=== PATIENT | male | born 1965 | race Caucasian/White ===

== ENCOUNTER 2017-01-12 00:17 | Emergency (ER) | payer SELFPAY ==
[~2017-01-12] VITALS: Ht 188 cm; Wt 171.0 kg
[~2017-01-12 00:17] MED LIST: ACET-637 PO; IBUP-45 PO; RANTIDINE
--- NOTE | 2017-01-12 01:16 | NUR ---
Patient discharged to home in stable conditon. Written and verbal after care instructions given. Patient verbalizes understanding of instructions.
== END 2017-01-12 01:17 | disposition home or self-care (01) ==
LOC: ER 00:18
DX: L08.9 Local infection of the skin and subcutaneous tissue, unspecified (principal); N50.89 Other specified disorders of the male genital organs; F17.200 Nicotine dependence, unspecified, uncomplicated
CPT/HCPCS: 99283; A4663

== ENCOUNTER 2018-05-02 01:39 | Emergency (ER) | payer SELFPAY ==
[~2018-05-02] VITALS: Ht 190.5 cm; Wt 170.1 kg
--- NOTE | 2018-05-02 01:59 | NUR ---
Dr. Patino at bedside for MSE.
[2018-05-02 02:18] LABS: *BLOOD, URINE NEGATIVE (NEGATIVE); *CLARITY,URINE CLEAR (CLEAR); *COLOR,URINE YELLOW (YELLOW); *KETONES,URINE TRACE (NEGATIVE); *UROBILINOGEN,URINE 0.2 E.U./dl (NORMAL); LEUKOCYTE ESTERASE ,URINE NEGATIVE (NEGATIVE); NITRITE, URINE NEGATIVE (NEGATIVE); UGLUCOSE NEGATIVE (NEGATIVE)
[2018-05-02 02:19] LABS: *BILIRUBIN,URIN 1+ (NEGATIVE)
[2018-05-02 02:27] LABS: BACTERIA,URINE NONE SEEN /HPF (NONE SEEN); RBC,URINE 0-3 /HPF (0-3); SQUAMOUS EPITHELIAL CELL,UR FEW /HPF (NONE SEEN)
[2018-05-02 02:28] LABS: MUCUS,URINE MODERATE /LPF (0-FEW)
--- NOTE | 2018-05-02 03:15 | NUR ---
Ultrasound at bedside.
--- NOTE | 2018-05-02 03:44 | NUR ---
Patient discharged to home in stable conditon. Written and verbal after care instructions given. Patient verbalizes understanding of instructions. Patient ambulated out of ER with steady gait, no acute signs of distress, VSS, all belongings taken.
[2018-05-02 03:48] VITALS: BP 165/90
== END 2018-05-02 03:54 | disposition home or self-care (01) ==
LOC: ER 01:39
DX: R32 Unspecified urinary incontinence (principal); L72.3 Sebaceous cyst; N50.89 Other specified disorders of the male genital organs; F17.200 Nicotine dependence, unspecified, uncomplicated; Z79.1 Long term (current) use of non-steroidal anti-inflammatories (NSAID); Z79.899 Other long term (current) drug therapy; Z90.89 Acquired absence of other organs
CPT/HCPCS: 76870; A4663

== ENCOUNTER 2018-11-05 21:52 | Emergency (ER) | payer SELFPAY ==
[~2018-11-05] VITALS: Ht 190.5 cm; Wt 172.4 kg
[2018-11-05] MEDS ORDERED: TRAM50TA2 PO (22:05)
--- NOTE | 2018-11-05 22:42 | NUR ---
Patient ambulated with stable gait. A/Ox4. Speech is clear, speaks in complete sentences. No neuro deficits noted. Patient came for c/o a stiff neck since Sunday. Patient has had a long hx of stiff neck symptoms since he was a child and was able to resolve it on his own usually. Patient stating that the stiffness in his neck is making him shiver. Pain 7/10. Respiratory even and unlabored, no cough no sob. No cardiovascular distress noted. No GI/ distress noted. Patient in bed at lowest position, sr upx2, call light within reach. Fall precautions implemented per protocol. Friend at bedisde accompanying patient.
[2018-11-05] MEDS ORDERED: IBUPROFEN 800 MG TABLET PO ONE (22:45)
[2018-11-05] MEDS ORDERED: IBUPROFEN 800 MG TABLET ONE (22:51)
[2018-11-05 22:52] LABS: EOSINOPHILS % (AUTO) 0.2 % (0.0-7.0); HEMATOCRIT 43.1 % (36.7-47.1); HEMOGLOBIN 14.8 g/dL (12.5-16.3); LYMPHOCYTES % (AUTO) 7.8 % (20.5-51.5); MEAN CORPUSCULAR HEMOGLOBIN 31.6 uug (23.8-33.4); MEAN CORPUSCULAR HGB CONC 34 g/dL (32.5-36.3); MEAN CORPUSCULAR VOLUME 92.4 fL (73.0-96.2); MONOCYTES % (AUTO) 7.7 % (0.0-11.0); NEUTROPHILS # (AUTO) 10.8 K/uL (1.8-8.9); NEUTROPHILS % (AUTO) 84.3 % (38.5-71.5); PLATELET COUNT (AUTO) 243 K/uL (152-348); RED BLOOD CELL COUNT(AUTO) 4.67 MIL/uL (4.06-5.63); WHITE BLOOD COUNT (AUTO) 12.9 K/uL (3.6-10.2)
[2018-11-05 23:10] LABS: POTASSIUM 3.8 mmol/L (3.5-5.1)
--- NOTE | 2018-11-05 23:10 | NUR ---
Patient transported to CT in stable condition.
[2018-11-05 23:16] LABS: BILIRUBIN,DIRECT 0.1 mg/dL (0.0-0.2); BILIRUBIN,TOTAL 0.6 mg/dL (0.2-1.0); TOTAL PROTEIN, SERUM 7.6 g/dL (6.4-8.2)
[2018-11-06] MEDS ORDERED: SULFAMETH/TRIMETH 800/160 MG TABLET PO ONE (00:45)
[2018-11-06] MEDS ORDERED: SULFAMETH/TRIMETH 800/160 MG TABLET ONE (00:46)
--- NOTE | 2018-11-06 00:52 | NUR ---
Patient discharged to home in stable conditon. Written and verbal after care instructions given. Patient verbalizes understanding of instructions. Patient ambulated with stable gait.
[2018-11-06 00:55] VITALS: BP 122/81
== END 2018-11-06 00:56 | disposition home or self-care (01) ==
LOC: ER 21:52
DX: L03.221 Cellulitis of neck (principal); F17.210 Nicotine dependence, cigarettes, uncomplicated; Z90.89 Acquired absence of other organs; Z79.1 Long term (current) use of non-steroidal anti-inflammatories (NSAID); Z79.899 Other long term (current) drug therapy
CPT/HCPCS: 36415; 70030-TC; 72125; 83605; 85025; 87040; A4663

== ENCOUNTER 2018-11-18 19:36 | Emergency (ER) | payer SELFPAY ==
[~2018-11-18] VITALS: Ht 188 cm; Wt 172.4 kg
[~2018-11-18 19:36] MED LIST changes: -ACET-637 PO; -IBUP-45 PO; +TRAM50TA2 PO
--- NOTE | 2018-11-18 19:47 | NUR ---
Pt ambulated into ER c/o of bump on the surface of the tongue. Pt states bump appeared 2 days ago but had no difficult in talking or eating since then. Pt denies pain or discomfort. No acute distress noted.
--- NOTE | 2018-11-18 19:49 | NUR ---
DR STEVENS at bedside for MSE.
--- NOTE | 2018-11-18 19:59 | NUR ---
Verbal after care instructions given by DR STEVENS. Patient discharged to home in stable conditon. Written and verbal after care instructions given. Patient verbalizes understanding of instructions.
[2018-11-18 20:01] VITALS: BP 122/85
== END 2018-11-18 20:01 | disposition home or self-care (01) ==
LOC: ER 19:39
DX: K11.6 Mucocele of salivary gland (principal); F17.210 Nicotine dependence, cigarettes, uncomplicated; Z90.89 Acquired absence of other organs; Z79.899 Other long term (current) drug therapy
CPT/HCPCS: A4663

== ENCOUNTER 2019-10-26 19:37 | Emergency (ER) | payer OTHER ==
[~2019-10-26] VITALS: Ht 188 cm; Wt 158.8 kg
--- NOTE | 2019-10-26 19:46 | NUR ---
Dr. Small at bedside for MSE.
[2019-10-26 20:16] LABS: BASOPHILS # (AUTO) 0.2 K/uL (0.0-8.0); BASOPHILS % (AUTO) 1.5 % (0.0-2.0); EOSINOPHILS # (AUTO) 0.2 K/uL (0.0-0.7); EOSINOPHILS % (AUTO) 2.1 % (0.0-7.0); HEMATOCRIT 45.2 % (36.7-47.1); HEMOGLOBIN 15.3 g/dL (12.5-16.3); LYMPHOCYTES # (AUTO) 2.1 K/uL (20.0-40.0); LYMPHOCYTES % (AUTO) 19.6 % (20.5-51.5); MEAN CORPUSCULAR HEMOGLOBIN 31.6 uug (23.8-33.4); MEAN CORPUSCULAR HGB CONC 34 g/dL (32.5-36.3); MEAN CORPUSCULAR VOLUME 93.6 fL (73.0-96.2); MONOCYTES # (AUTO) 0.9 K/uL (2.0-10.0); MONOCYTES % (AUTO) 8.4 % (0.0-11.0); NEUTROPHILS # (AUTO) 7.2 K/uL (1.8-8.9); NEUTROPHILS % (AUTO) 68.4 % (38.5-71.5); PLATELET COUNT (AUTO) 234 K/uL (152-348); RED BLOOD CELL COUNT(AUTO) 4.83 MIL/uL (4.06-5.63); WHITE BLOOD COUNT (AUTO) 10.5 K/uL (3.6-10.2)
[2019-10-26 20:22] LABS: POTASSIUM 3.8 mmol/L (3.5-5.1)
--- NOTE | 2019-10-26 20:30 | NUR ---
Patricia spivey in [facility] - 10/26/19 at 2035 by ANGELITO Ultrasound at bedside.
[2019-10-26 20:35] LABS: BILIRUBIN,TOTAL 0.4 mg/dL (0.2-1.0); TOTAL PROTEIN, SERUM 7.2 g/dL (6.4-8.2)
--- NOTE | 2019-10-26 20:37 | NUR ---
Ultrasound at bedside.
--- NOTE | 2019-10-26 21:00 | NUR ---
Patient discharged to home in stable condition. Written and verbal after care instructions given. Patient verbalizes understanding of instructions. Stressed follow up or return to ER for worsening s/s. Patient out of ER with steady gait, no acute signs of distress, VSS, all belongings taken.
[2019-10-26 21:01] VITALS: BP 140/85
== END 2019-10-26 21:01 | disposition home or self-care (01) ==
LOC: ER 19:42
DX: R60.0 Localized edema (principal); G89.29 Other chronic pain; M25.562 Pain in left knee; M25.561 Pain in right knee; M71.22 Synovial cyst of popliteal space [Baker], left knee; F17.210 Nicotine dependence, cigarettes, uncomplicated; Z98.84 Bariatric surgery status; Z79.899 Other long term (current) drug therapy; E66.01 Morbid (severe) obesity due to excess calories; Z68.41 Body mass index [BMI] 40.0-44.9, adult; F43.20 Adjustment disorder, unspecified
CPT/HCPCS: 36415; 70030-TC; 85025; 93005; A4663

== ENCOUNTER 2020-01-05 23:20 | Emergency (ER) | payer OTHER ==
[~2020-01-05] VITALS: Ht 190.5 cm; Wt 149.7 kg
--- NOTE | 2020-01-05 23:57 | NUR ---
Patient discharged to home in stable condition. Written and verbal after care instructions given. Patient verbalizes understanding of instructions. Stressed follow up or return to ER for worsening s/s.
== END 2020-01-05 23:58 | disposition home or self-care (01) ==
LOC: ER 23:22
DX: S16.1XXA Strain of muscle, fascia and tendon at neck level, initial encounter (principal); Z98.84 Bariatric surgery status; F17.210 Nicotine dependence, cigarettes, uncomplicated; G89.29 Other chronic pain; M25.569 Pain in unspecified knee; Z79.899 Other long term (current) drug therapy
CPT/HCPCS: A4663

== ENCOUNTER 2020-05-17 20:44 | Emergency (ER) | payer OTHER ==
[~2020-05-17] VITALS: Ht 188 cm; Wt 149.7 kg
[2020-05-17] MEDS ORDERED: CEFTRIAXONE 1 G VIAL IM ONE (21:15)
[2020-05-17] MEDS ORDERED: CEPH500C2 PO (21:17)
[2020-05-17] MEDS ORDERED: SULF1TAB48 PO (21:17)
[2020-05-17] MEDS ORDERED: CEFTRIAXONE 1 G VIAL ONE (21:19)
[2020-05-17] MEDS ORDERED: LIDOCAINE HCL 1% 20 ML VIAL ONE (21:19)
[2020-05-17] MEDS ORDERED: IBUPROFEN 600 MG TABLET ONE (21:28)
[2020-05-17] MEDS ORDERED: IBUPROFEN 600 MG TABLET PO ONE (21:30)
[2020-05-17 21:31] VITALS: BP 159/101
== END 2020-05-17 21:31 | disposition home or self-care (01) ==
LOC: ER 20:44
DX: K11.20 Sialoadenitis, unspecified (principal); F17.210 Nicotine dependence, cigarettes, uncomplicated; Z98.84 Bariatric surgery status; R03.0 Elevated blood-pressure reading, without diagnosis of hypertension
CPT/HCPCS: 96372; 99283; 99406; J0696; J3490; A4663

== ENCOUNTER 2020-08-02 23:31 | Emergency (ER) | payer OTHER ==
[~2020-08-02] VITALS: Ht 188 cm; Wt 165.3 kg
[~2020-08-02 23:31] MED LIST changes: +CEPH500C2 PO; +SULF1TAB48 PO
--- NOTE | 2020-08-02 23:58 | NUR ---
pt c/o dizziness after using occulus headset about 1 hour prior. Pt reports dizziness has subsided. Denies chest pain, headache. Pt. also reports sharp neck pain 7/10 starting several days prior.
[2020-08-03] MEDS ORDERED: CARI350T PO (00:23)
[2020-08-03 01:19] VITALS: BP 148/87
== END 2020-08-03 00:40 | disposition home or self-care (01) ==
LOC: ER 23:34
DX: M43.6 Torticollis (principal); H53.2 Diplopia; Z98.84 Bariatric surgery status; F17.210 Nicotine dependence, cigarettes, uncomplicated
CPT/HCPCS: A4663

== ENCOUNTER 2020-10-23 01:20 | Emergency (ER) | payer OTHER ==
[~2020-10-23] VITALS: Ht 190.5 cm; Wt 163.3 kg
[~2020-10-23 01:20] MED LIST changes: +CARI350T PO
[2020-10-23] MEDS ORDERED: CEFAZOLIN 2 G in IV DEXTROSE 5% 100 ML IV ONE (03:00)
[2020-10-23] MEDS ORDERED: CEFAZOLIN 1 G VIAL ONE (03:12)
[2020-10-23] MEDS ORDERED: CEPH500C2 PO (03:23)
[2020-10-23] MEDS ORDERED: OXYC-128 PO ×2 (03:23→03:25)
--- NOTE | 2020-10-23 04:15 | NUR ---
IV removed. Catheter intact and site benign. Pressure and 4x4 gauze applied to site. No bleeding noted. Patient discharged to home in stable condition. Written and verbal after care instructions given. Patient verbalizes understanding of instructions. Stressed follow up or return to ER for worsening s/s. Patient ambulating with steady gait. A&O x4, NAD noted
[2020-10-23 04:16] VITALS: BP 142/85
== END 2020-10-23 04:15 | disposition home or self-care (01) ==
LOC: ER 01:21
DX: L03.116 Cellulitis of left lower limb (principal); F17.210 Nicotine dependence, cigarettes, uncomplicated; Z98.84 Bariatric surgery status; E66.01 Morbid (severe) obesity due to excess calories; Z68.42 Body mass index [BMI] 45.0-49.9, adult; I10 Essential (primary) hypertension
CPT/HCPCS: 96365; 99284; J0690; J7060; A4663

== ENCOUNTER 2021-06-05 16:10 | Inpatient (IN) | payer OTHER ==
[~2021-06-05] VITALS: Ht 190.5 cm; Wt 163.3 kg
[~2021-06-05 16:10] MED LIST changes: +OXYC-128 PO
[2021-06-05 17:04] LABS: HEMATOCRIT 43.6 % (36.7-47.1); MEAN CORPUSCULAR HEMOGLOBIN 32.6 uug (23.8-33.4); MEAN CORPUSCULAR VOLUME 95.1 fL (73.0-96.2); PLATELET COUNT (AUTO) 308 K/uL (152-348)
--- NOTE | 2021-06-05 17:06 | NUR ---
PT IS I9N ROOM #2A. DR QUINONEZ EVALUATED THE PT.
[2021-06-05 17:17] LABS: BILIRUBIN,DIRECT 0.1 mg/dL (0.0-0.2); BILIRUBIN,TOTAL 0.4 mg/dL (0.2-1.0); POTASSIUM 4.3 mmol/L (3.5-5.1); TOTAL PROTEIN, SERUM 7.2 g/dL (6.4-8.2)
[2021-06-05] MEDS ORDERED: IBUP-1955 PO (18:22)
[2021-06-05] MEDS ORDERED: MAGNESIUM HYDROXIDE 30 ML LIQUID UDC PO PRN (18:30)
[2021-06-05] MEDS ORDERED: ACETAMINOPHEN 325 MG TABLET PO PRN (18:30)
[2021-06-05] MEDS ORDERED: REMEDY ESSENTIAL ZINC PASTE 113 GM TP PRN (18:30)
[2021-06-05] MEDS ORDERED: ONDANSETRON 4 MG/2 ML VIAL IV PRN (18:30)
[2021-06-05] MEDS ORDERED: HYDROCODONE/APAP 5-325MG TABLET PO PRN (18:30)
[2021-06-05] MEDS ORDERED: HEPARIN SODIUM,PORCINE 5,000 UNITS/ML VIAL SQ ONE (19:15)
[2021-06-05] MEDS: HEPARIN/D5W DRIP 500 ML IV PRN (19:23)
--- NOTE | 2021-06-05 19:55 | NUR ---
Report given to [facility].
--- NOTE | 2021-06-05 20:50 | NUR ---
Received report from [facility]. Patient transferred from ED to CCU 4 with a Dx of DVT Left leg, via gurney accompanied by 1 staff member with ongoing heparin drip 19358 U/hr. Patient is awake, A/Ox4, denies pain at this time. Able to make needs known. Ambulatory with steady gait. VSS. No signs of acute distress noted. IV site at RAC 18G with on going heparin drip at same rate. Body assessment done with no skin issues noted. Belongings at bedside and list checked placed at chart. Call light within reach. Bed at lowest position, brakes on, bed alarm on, siderails x2. Will continue to monitor closely.
[2021-06-05] MEDS ORDERED: NICOTINE 21 MG/24HR PATCH TD SCH (22:00)
--- NOTE | 2021-06-05 22:00 | NUR ---
Patient is anxious and frustrated on why he is here in the hospital. Patient wanted to smoke outside. Explained risk and benefits x3. Verbalized understanding. Offered nicotine patch and patient agreed to it. Called [facility] exchange and spoke with Dr Edmondson re: nicotine patch. Per Dr Edmondson, nicotine patch 21mg q 24 hour. Noted and carried out.
[2021-06-05 22:21] VITALS: BP 136/98
[2021-06-05 23:00] VITALS: BP 159/96
[2021-06-05] MEDS: NICOTINE 21 MG/24HR PATCH TD SCH (23:07)
[2021-06-05] MEDS ORDERED: NICOTINE 21 MG/24HR PATCH TD ONE (23:11)
[2021-06-06] VITALS (13 sets, daily range): BP systolic 113–155; BP diastolic 66–104
[2021-06-06] MEDS ORDERED: HEPARIN SODIUM,PORCINE 5,000 UNITS/ML VIAL IV ONE (02:15)
[2021-06-06 04:54] LABS: HEMATOCRIT 41.5 % (36.7-47.1); MEAN CORPUSCULAR VOLUME 94.4 fL (73.0-96.2); PLATELET COUNT (AUTO) 274 K/uL (152-348)
[2021-06-06 05:05] LABS: CREATININE 0.9 mg/dL (0.6-1.3); MAGNESIUM 2.2 mg/dL (1.8-2.4); PHOSPHOROUS 3.3 mg/dL (2.5-4.9); POTASSIUM 3.6 mmol/L (3.5-5.1)
[2021-06-06 05:14] LABS: THYROID STIMULATING HORMONE 1.308 mIU/mL (0.358-3.740)
--- NOTE | 2021-06-06 07:00 | NUR ---
Received pt. AAox4. vitals stable no c/of pain or any other discomfort. On RA with saturation within desired limits. On NSR. with sbp within normal.. IV to RAC patent and infusing with Heparin drip at 2200units/hr= 44cc/hr. with next ptt to be drawn at 0800. No signs of bleeding will continue to monitor.
[2021-06-06] MEDS: PANTOPRAZOLE SODIUM 40 MG TABLET.DR PO SCH (07:11)
[2021-06-06] MEDS: HEPARIN/D5W DRIP 500 ML IV PRN (07:58)
[2021-06-06] MEDS: NICOTINE 21 MG/24HR PATCH TD SCH (08:17)
--- NOTE | 2021-06-06 09:00 | NUR ---
Attending Katerin Machado at bedside to examine and update pt. on care plan.
--- NOTE | 2021-06-06 19:05 | NUR ---
received patient awake , oriented x 4 , on room air , iv 20 ga right lower forearm intact , uses a urinal , left leg and ankle 3+ edema noted , denies pain , no fever noted , sinus rhythm at 76 , blood presure 144/ 85 , rr 14 , 98 % oxygen saturation
[2021-06-06] MEDS: ENOXAPARIN SODIUM 150 MG/ML SYRINGE SQ SCH (20:36)
[2021-06-07 04:00] VITALS: BP 133/64
[2021-06-07 05:05] LABS: MEAN CORPUSCULAR HEMOGLOBIN 32.1 uug (23.8-33.4); MEAN CORPUSCULAR VOLUME 95.4 fL (73.0-96.2); PLATELET COUNT (AUTO) 279 K/uL (152-348)
[2021-06-07 05:29] LABS: EOSINOPHILS % (MANUAL) 2 % (0-8); LYMPHOCYTES % (MANUAL) 39 % (20-40); MONOCYTES % (MANUAL) 8 % (2-10); NEUTROPHILS % (MANUAL) 51 % (42-75)
[2021-06-07 05:40] LABS: MAGNESIUM 2.6 mg/dL (1.8-2.4); POTASSIUM 4.8 mmol/L (3.5-5.1)
--- NOTE | 2021-06-07 06:00 | NUR ---
patient is back sleeping , arousable to light touch , on room air , denies pain or sob , snacks were provided , iv intact , left leg swelling is still noted but no pain when touch , warm to touch
[2021-06-07] MEDS: PANTOPRAZOLE SODIUM 40 MG TABLET.DR PO SCH (06:08)
--- NOTE | 2021-06-07 07:05 | NUR ---
Received pt. sleeping comfortable, on NSR rate in the 80's. No tachypnea on room air with saturation of 99%. Afebrile. IV to RFA patent. Will continue with care plan.
[2021-06-07 08:00] VITALS: BP 109/63
[2021-06-07] MEDS: NICOTINE 21 MG/24HR PATCH TD SCH (08:08)
[2021-06-07] MEDS: ENOXAPARIN SODIUM 150 MG/ML SYRINGE SQ SCH (08:09)
--- NOTE | 2021-06-07 09:05 | NUR ---
Patient seen by attending CARISSA Machado report given see order hx.
[2021-06-07 12:25] VITALS: BP 114/73
--- NOTE | 2021-06-07 14:10 | NUR ---
Carter Lopez able to talk to patient for plans for discharge.
[2021-06-07] MEDS ORDERED: APIX5TAB PO (15:53)
--- NOTE | 2021-06-07 16:30 | NUR ---
Patient discharged at this time is able to walk to the bathroom and change to his own clothes, patient belongings collected and signed by patient with patient discharge instructions. IV DCd. Pressure dressing applied due to blood thinners. no bleeding noted.
--- NOTE | 2021-06-07 16:35 | NUR ---
follow instructions and business card given for Dr. Baez. Carter Lopez also noted on his discharge instructions for follow up care.
== END 2021-06-07 16:30 | disposition home or self-care (01) | DRG 300 ==
LOC: ER 16:12 → CCU 19:58
PROVIDERS: ADMIT Registered Nurse; ATTEND Registered Nurse
DX: I82.432 Acute embolism and thrombosis of left popliteal vein (principal); Z68.42 Body mass index [BMI] 45.0-49.9, adult; E66.01 Morbid (severe) obesity due to excess calories; Z98.84 Bariatric surgery status; F17.210 Nicotine dependence, cigarettes, uncomplicated; R32 Unspecified urinary incontinence; G89.29 Other chronic pain; M25.569 Pain in unspecified knee; Z87.438 Personal history of other diseases of male genital organs
CPT/HCPCS: 36415; 70030-TC; 71045; 83735; 84100; 84443; 85025; 85305; 85613; 85730; 93005; A4663; G0378; J1644; J1650; J7030